=== PATIENT | female | born 1975 | race Caucasian/White ===

== ENCOUNTER → 2018-09-28 | Outpatient (CLI) | payer BC | END | disposition home or self-care (01) | LOC: CFH 09:56 | PROVIDERS: ATTEND Psychiatry & Neurology Neurology | DX: R41.3 Other amnesia (principal); R51 Headache; R41.9 Unspecified symptoms and signs involving cognitive functions and awareness; Z82.0 Family history of epilepsy and other diseases of the nervous system | CPT/HCPCS: 70551 ==